=== PATIENT | female | born 1995 | race Caucasian/White ===

== ENCOUNTER 2023-09-14 10:11 | Emergency (ER) | payer SELFPAY ==
[~2023-09-14] VITALS: Ht 167.6 cm; Wt 134.4 kg
[2023-09-14] MEDS ORDERED: PREDNISONE20 MG PO (10:24)
[2023-09-14] MEDS ORDERED: ACYCLOVIR800 MG PO (10:24)
[2023-09-14 10:42] VITALS: BP 122/72
== END 2023-09-14 10:44 | disposition home or self-care (01) ==
LOC: ED 10:11
DX: G51.0 Bell's palsy (principal)
CPT/HCPCS: 99283